=== PATIENT | male | born 1995 | race Caucasian/White ===

== ENCOUNTER 2019-08-12 21:18 | Emergency (ER) | payer OTHER ==
[~2019-08-12] VITALS: Ht 172.7 cm; Wt 78.0 kg
[2019-08-12] MEDS ORDERED: EPIPEN0.3 MG/0.1 IM (22:33)
== END 2019-08-12 23:17 | disposition home or self-care (01) ==
LOC: ER 21:18
DX: T63.441A Toxic effect of venom of bees, accidental (unintentional), initial encounter (principal)
CPT/HCPCS: 99283; J7512; Q0163

== ENCOUNTER 2020-06-05 13:22 | Day surgery (SDC) | payer OTHER ==
[~2020-06-05] VITALS: Ht 172.7 cm; Wt 77.9 kg
[~2020-06-05 13:22] MED LIST: EPIPEN0.3 MG/0.1 IM
[2020-06-05] MEDS ORDERED: OMEP20ER (13:35)
== END 2020-06-05 14:26 | disposition home or self-care (01) ==
LOC: ORSCSDS 13:22
PROVIDERS: Student in an Organized Health Care Education/Training Program
PROC: 0DB58ZX Excision of Esophagus, Via Natural or Artificial Opening Endoscopic, Diagnostic (ICD-10-PCS; principal; 2020-06-05 15:15)
PROC: 0DB68ZX Excision of Stomach, Via Natural or Artificial Opening Endoscopic, Diagnostic (ICD-10-PCS; principal; 2020-06-05 15:15)
PROC: 0DB98ZX Excision of Duodenum, Via Natural or Artificial Opening Endoscopic, Diagnostic (ICD-10-PCS; principal; 2020-06-05 15:15)
DX: K21.00 Gastro-esophageal reflux disease with esophagitis, without bleeding (principal); R11.2 Nausea with vomiting, unspecified; K29.70 Gastritis, unspecified, without bleeding; F41.8 Other specified anxiety disorders; Z79.899 Other long term (current) drug therapy
CPT/HCPCS: 88305; 88312; 88342; J2250; J2704; J7120